=== PATIENT | female | born 1960 | race Two or more races ===

== ENCOUNTER 2016-11-12 12:22 | Day surgery (SDC) | payer BC ==
[~2016-11-12] VITALS: Ht 165.1 cm; Wt 65.4 kg
[2016-11-12 13:30] VITALS: Ht 165.1 cm; Wt 65.4 kg
[2016-11-12] MEDS ORDERED: DULO30CA47 PO (13:42)
[2016-11-12] MEDS ORDERED: HYD25 PO (13:42)
[2016-11-12] MEDS ORDERED: RAMI5CAP46 PO (13:42)
[2016-11-12] MEDS ORDERED: CARV3.1260 PO (13:42)
[2016-11-12] MEDS ORDERED: METF500T4 PO (13:42)
[2016-11-12] MEDS ORDERED: MELO-109 PO (13:42)
[2016-11-12 14:06] VITALS: BP 110/60; PULSE 71; RESP 16
[2016-11-12] MEDS ORDERED: PROPOFOL 40 ML ONE (14:37)
[2016-11-12] MEDS ORDERED: LIDOCAINE 2% (SDV) 5 ML INJ ONE (14:37)
--- NOTE | 2016-11-12 15:32 | GILP ---
DATE OF PROCEDURE: NAME OF PROCEDURE: Colonoscopy to cecum. SURGEON: Lalita Merino MD HISTORY AND INDICATIONS: The patient is being evaluated for colorectal cancer screening. PREMEDICATION: Monitored anesthesia care by anesthesiologist. INSTRUMENT USED: Olympus colonoscope. PREPARATION: Adequate. TECHNIQUE: After informed consent, with the patient/relatives understanding the procedure, its abraham cations potential risks and complications, including but not limited to allergic reaction, bleeding, perforation, infection, missed lesions and after all pertinent questions were answered to the patie nt's satisfaction, the patient/relatives signed the witnessed informed consent. Following this, premedication was administered slowly IV push by under careful cardiovascular and re spiratory monitoring with pulse oximetry, automatic blood pressure and media monitor. Once the sedativ e effect was achieved, the patient was placed in the left lateral decubitus position, digital rectal examination was performed. The colonoscope was then introduced and advanced under visual control th roughout all segments of the colon including: the rectum, sigmoid, descending colon, splenic flexure , transverse colon, hepatic flexure, ascending colon and finally reaching the cecum which was clearl y identified by transillumination, finger indentation and the ileocecal valve. Careful examination o f the mucosa of the lower gastrointestinal tract both on insertion as well as withdrawal of the inst rument disclosed the following findings: Rectal Examination: No evidence of perirectal disease, no masses. Colonic Mucosa: The colonic mucosa is entirely unremarkable. The ileocecal valve was clearly ident ified and appears unremarkable. The instrument was withdrawn. On withdrawal of the instrument, no additional abnormalities are noted with exception of moderate-sized internal hemorrhoids. The instrument was then withdrawn. The patient tolerated the procedure well and was transferred out of the endoscopy suite awake and in good condition to continue recovery under observation. IMPRESSION: Moderate-sized internal hemorrhoids, otherwise normal colonoscopy to cecum. PLAN: The patient will be followed up as an outpatient. Annual Hemoccult stool testing is recommen ded. High-fiber diet is recommended, and screening colonoscopy in 10 years is advisable unless clin ically indicated otherwise. Dictated By: LALITA MERINO MS/DESTINEE Conf#: [id number] DID#: [id number]
[2016-11-12 15:37] VITALS: BP 103/49; PULSE 62; RESP 20
== END 2016-11-12 15:46 | disposition home or self-care (01) ==
LOC: GIL 12:22
PROVIDERS: ATTEND Internal Medicine Gastroenterology
DX: Z12.11 Encounter for screening for malignant neoplasm of colon (principal); K64.8 Other hemorrhoids; I10 Essential (primary) hypertension; E11.9 Type 2 diabetes mellitus without complications
CPT/HCPCS: 45378; 82962; Z7610